=== PATIENT | female | born 1950 | race Caucasian/White ===

== ENCOUNTER 2017-12-08 11:24 | Emergency (ER) | payer OTHER ==
[~2017-12-08] VITALS: Ht 165.1 cm; Wt 98.0 kg
[~2017-12-08 11:24] MED LIST: ADVAIR 100/501 DISK IH; ALBUTEROL17 GM IH; ASPIR 8181 MG PO; CALAN SR,COVER240 MG PO; CINNAMON500 MG PO; CLEOCIN300 MG PO; DIOVAN160 MG PO; DOXYCYCLINE HY100 M1 PO; FISH OIL 1,0001 EA10 PO; HYDROCHLOROTHIA25 MG PO; HYDROCHLOROTHIA50 MG PO; KEFLEX500 MG PO; LO-DOSE ASPIRIN81 M1 PO; NEXIUM40 MG PO; PRAVACHOL40 MG PO; PROTONIX40 MG PO; SSD25GM TP; SYNTHROID100 MCG PO; VENTOLIN HFA18 GM IH
[2017-12-08 12:05] LABS: HEMATOCRIT 38.5 % (36.0-46.0); HEMOGLOBIN 13.6 G/DL (11.9-15.5); MCH 31.5 PG (29.0-34.0); MCHC 35.3 G/DL (30.0-36.0); MCV 89.1 FL (83-99); PLATELET COUNT 229 K/uL (156-360); RBC DIS.WIDTH-CV 12.3 % (11.8-14.6); RED BLOOD COUNT 4.32 M/uL (3.80-5.20); WHITE BLOOD COUNT 6.6 K/uL (4.1-10.2)
[2017-12-08 13:05] LABS: CHLORIDE 103 MEQ/L (99-109); CREATININE 0.7 MG/DL (0.6-1.3); GFR ESTIMATE (CALCULATED) > 59 mL/min/; GLUCOSE 206 mg/dL (70-99); POTASSIUM 4.1 MEQ/L (3.7-5.4); SODIUM 141 MEQ/L (136-147); UREA NITROGEN (BUN) 11 mg/dL (9-23)
[2017-12-08] MEDS ORDERED: PREDNISONE20 MG PO (13:57)
[2017-12-08] MEDS ORDERED: PROVENTIL,2.5 MG/3 M IH (13:57)
[2017-12-08 14:46] VITALS: BP 133/60
== END 2017-12-08 14:50 | disposition home or self-care (01) ==
LOC: EME 11:24
DX: J44.1 Chronic obstructive pulmonary disease with (acute) exacerbation (principal); K21.9 Gastro-esophageal reflux disease without esophagitis; I10 Essential (primary) hypertension; M79.7 Fibromyalgia; F32.9 Major depressive disorder, single episode, unspecified; Z86.73 Personal history of transient ischemic attack (TIA), and cerebral infarction without residual deficits; Z87.891 Personal history of nicotine dependence; Z90.49 Acquired absence of other specified parts of digestive tract; Z79.82 Long term (current) use of aspirin; Z91.040 Latex allergy status; Z88.0 Allergy status to penicillin; Z88.2 Allergy status to sulfonamides; Z88.1 Allergy status to other antibiotic agents; Z88.5 Allergy status to narcotic agent; Z88.8 Allergy status to other drugs, medicaments and biological substances
CPT/HCPCS: 71046; 80048; 85027; 94640; 99281; 99284; J7512